=== PATIENT | male | born 1965 | race Caucasian/White ===

== ENCOUNTER 2024-05-15 16:45 | Inpatient (IN) | payer MEDICAID ==
[~2024-05-15] VITALS: Ht 172.7 cm; Wt 76.2 kg
[2024-05-15 17:47] LABS: BASOPHILS % 0.7 % (0.0-2.0); EOSINOPHILS % 2.2 % (0.0-5.0); HEMOGLOBIN. 12.1 g/dL (14.0-18.0); LYMPHOCYTES % 28.5 % (20.0-50.0); MEAN CORPUSCULAR HEMOGLOBIN 31.7 pg (28.0-32.0); MEAN CORPUSCULAR HGB CONC 33.6 g/dL (31.0-37.0); MEAN CORPUSCULAR VOLUME 94.3 fL (80.0-94.0); MEAN PLATELET VOLUME 8.9 fl (7.4-10.4); MONOCYTES % 7.2 % (2.0-8.0); NEUTROPHILS % 61.4 % (40.0-76.0); PLATELET 296 x1000/uL (130-400); RED BLOOD CELL COUNT 3.82 mill/uL (4.7-6.1); RED CELL DISTRIBUTION WIDTH 14.5 % (11.6-14.6)
[2024-05-15] MEDS: SODIUM CHLORIDE 0.9% 1,000 ML IV ONE (17:50)
[2024-05-15 17:52] LABS: CHLORIDE 108 mEq/L (98-107); POTASSIUM 4.2 mEq/L (3.5-5.1); SODIUM 138 mEq/L (136-145)
[2024-05-15 17:53] LABS: CALCIUM 9.3 mg/dL (8.7-10.4); CARBON DIOXIDE 25 mEq/L (21-32)
[2024-05-15 17:58] LABS: CREATININE 0.9 mg/dL (0.6-1.3); D-DIMER 0.43 mg/L FEU (<0.50); GLUCOSE 214 mg/dL (70-105); INR 0.9; PARTIAL THROMBOPLASTIN TIME 25.6 sec (23.4-31.0); PROTHROMBIN TIME 10.5 sec (9.6-11.0); TROPONIN I HIGH SENSITIVITY 9 ng/L (3.0-53); UREA NITROGEN BLOOD 22 mg/dL (9-23)
[2024-05-15] MEDS ORDERED: CLONIDINE 0.1MG TABLET PO PRN (20:15)
[2024-05-15] MEDS ORDERED: MAGNESIUM/ALUMINUM HYDROXIDE/SIMETHICONE 30ML UDC PO PRN (20:15)
[2024-05-15] MEDS ORDERED: LORAZEPAM 0.5MG TABLET PO PRN (20:15)
[2024-05-15] MEDS ORDERED: GUAIFENESIN 200MG/10ML SUGAR FREE UDC PO PRN (20:15)
[2024-05-15] MEDS ORDERED: ONDANSETRON HCL 4MG/2ML INJ IV PRN (20:15)
[2024-05-15] MEDS ORDERED: DEXTROSE 50% WATER 50ML SYRINGE IV PRN (20:15)
[2024-05-15] MEDS ORDERED: IPRATROPIUM/ALBUTEROL 0.5-3(2.5)MG/3ML NEB HHN PRN (20:15)
[2024-05-15] MEDS ORDERED: DOCUSATE SODIUM 100MG CAPSULE PO PRN (20:15)
[2024-05-15] MEDS ORDERED: ACETAMINOPHEN 325MG TABLET PO PRN (20:15)
[2024-05-15] MEDS ORDERED: INSULIN LISPRO 100 UNITS/ML SUBCUT SCH (21:00)
[2024-05-15 21:28] LABS: TROPONIN I HIGH SENSITIVITY 8 ng/L (3.0-53)
[2024-05-15] MEDS: BLOOD SUGAR DIAGNOSTIC STRIP TEST SCH (21:59)
[2024-05-15] MEDS: PANTOPRAZOLE 40MG DR TABLET PO NR (21:59)
[2024-05-15] MEDS: ASPIRIN 81MG TABLET PO SCH (21:59)
[2024-05-15] MEDS: ENOXAPARIN 40MG/0.4ML SYR SUBCUT SCH (22:03)
[2024-05-15] MEDS: INSULIN LISPRO 100 UNITS/ML SUBCUT SCH (22:19)
[2024-05-15] MEDS: ATORVASTATIN CALCIUM 40MG TABLET PO SCH (22:22)
[2024-05-16 01:24] LABS: CREATINE KINASE MB FRACTION 1.9 ng/mL (0.5-3.6)
[2024-05-16 06:38] LABS: CARBON DIOXIDE 25 mEq/L (21-32); CHLORIDE 108 mEq/L (98-107); POTASSIUM 3.6 mEq/L (3.5-5.1); SODIUM 140 mEq/L (136-145)
[2024-05-16 06:39] LABS: CALCIUM 9.2 mg/dL (8.7-10.4)
[2024-05-16 06:43] LABS: IRON 62 ug/dL (65-175)
[2024-05-16 06:44] LABS: CREATININE 0.7 mg/dL (0.6-1.3); GLUCOSE 154 mg/dL (70-105); TRIGLYCERIDE 96 mg/dL (0-150); UREA NITROGEN BLOOD 14 mg/dL (9-23)
[2024-05-16 06:45] LABS: LDL CHOLESTEROL 95 mg/dL (5-100)
[2024-05-16 06:46] LABS: ALBUMIN 3.9 g/dL (3.2-4.8); CHOLESTEROL 154 mg/dL (<200); CREATINE KINASE MB FRACTION 2.5 ng/mL (0.5-3.6); HDL CHOLESTEROL 30 mg/dL (>55); PHOSPHORUS 3.7 mg/dL (2.5-4.9); TOTAL IRON BINDING CAPACITY 236 ug/dl (250-425)
[2024-05-16 06:47] LABS: FOLIC ACID (FOLATE) SERUM 11.85 ng/mL (>5.38); THYROID STIMULATING HORMONE 1.09 uIU/mL (0.55-4.78); VITAMIN B12 SERUM 392 pg/mL (211-911)
[2024-05-16 07:00] LABS: BASOPHILS % 0.8 % (0.0-2.0); HEMATOCRIT. 35.5 % (42.0-52.0); LYMPHOCYTES % 43.4 % (20.0-50.0); MEAN CORPUSCULAR HEMOGLOBIN 31.9 pg (28.0-32.0); MEAN CORPUSCULAR HGB CONC 33.8 g/dL (31.0-37.0); MEAN CORPUSCULAR VOLUME 94.5 fL (80.0-94.0); MEAN PLATELET VOLUME 9.3 fl (7.4-10.4); MONOCYTES % 7.1 % (2.0-8.0); NEUTROPHILS % 44.7 % (40.0-76.0); PLATELET 271 x1000/uL (130-400); RED BLOOD CELL COUNT 3.76 mill/uL (4.7-6.1); RED CELL DISTRIBUTION WIDTH 14.2 % (11.6-14.6); WHITE BLOOD COUNT 6.8 x1000/uL (4.5-11.0)
[2024-05-16] MEDS: MAGNESIUM GLUCONATE 500MG TABLET PO SCH (11:37)
[2024-05-16 12:00] VITALS: BP 113/72; PULSE 84; RESP 19; TEMP 36.50292; O2SAT 97
[2024-05-16 16:00] VITALS: BP 111/69; PULSE 86; RESP 14; TEMP 36.16956; O2SAT 98
[2024-05-16] MEDS ORDERED: REGADENOSON 0.4 MG/5 ML IV ONE (16:15)
[2024-05-16 16:19] VITALS: BP 123/72; PULSE 84; RESP 18; TEMP 36.5292
[2024-05-16 16:25] LABS: CLARITY URINE CLEAR (CLEAR); COLOR URINE YELLOW (YELLOW); GLUCOSE URINE NEGATIVE (NEGATIVE); KETONES URINE NEGATIVE (NEGATIVE); LEUKOCYTE ESTERASE URINE NEGATIVE (NEGATIVE); NITRITE URINE NEGATIVE (NEGATIVE); OCCULT BLOOD URINE NEGATIVE (NEGATIVE); PROTEIN URINE NEGATIVE (NEGATIVE); SPECIFIC GRAVITY URINE 1.016 (1.005-1.030)
[2024-05-16 16:34] LABS: *AMPHETAMINES SCREEN URINE NEGATIVE (NEGATIVE); *BARBITURATES SCREEN URINE NEGATIVE (NEGATIVE); *BENZODIAZEPINES SCREEN URINE NEGATIVE (NEGATIVE); *COCAINE SCREEN URINE NEGATIVE (NEGATIVE)
[2024-05-16 16:35] LABS: CANNABINOID URINE SCREEN NEGATIVE (NEGATIVE); ECSTASY MDMA SCREEN URINE NEGATIVE (NEGATIVE); METHADONE URINE SCREEN NEGATIVE (NEGATIVE); OPIATES URINE SCREEN NEGATIVE (NEGATIVE); PHENCYCLIDINE URINE SCREEN NEGATIVE (NEGATIVE)
[2024-05-16] MEDS: MAGNESIUM 2 G PREMIX 50 ML IV NR (17:56)
[2024-05-16 20:00] VITALS: BP 161/94; PULSE 88; RESP 18; TEMP 36.50292; O2SAT 97
[2024-05-16 22:21] LABS: ALANINE AMINOTRANSFERASE 16 IU/L (10-49); ALBUMIN 3.8 g/dL (3.2-4.8); ASPARTATE AMINOTRANSFERASE 16 IU/L (<34); BILIRUBIN DIRECT 0.2 mg/dL (<=3.0); BILIRUBIN TOTAL 0.7 mg/dL (0.1-1.0)
[2024-05-17] VITALS (7 sets, daily range): BP systolic 99–154; BP diastolic 53–99; PULSE 71–94; RESP 18–20; TEMP 35.66952–36.44736; O2SAT 95–99
[2024-05-17] MEDS ORDERED: REGADENOSON 0.4 MG/5 ML IV ONE (09:21)
[2024-05-17] MEDS ORDERED: FAMO20TA8 PO (11:55)
[2024-05-17] MEDS ORDERED: SENN-362 PO (11:55)
[2024-05-17] MEDS ORDERED: ATOR-2 PO (11:55)
[2024-05-17] MEDS ORDERED: CLOP75TA33 PO (11:55)
[2024-05-17] MEDS ORDERED: GABA-532 PO (11:55)
[2024-05-17] MEDS ORDERED: ATOR20TA65 PO (11:55)
[2024-05-17] MEDS ORDERED: GABA-290 PO (11:55)
[2024-05-17] MEDS ORDERED: METF-414 PO (11:55)
[2024-05-17] MEDS ORDERED: METO25TA6 PO (11:55)
[2024-05-17] MEDS ORDERED: [UNRECOGNIZED DRUG - CODE] TP (11:55)
[2024-05-17] MEDS ORDERED: LIP40 PO (13:26)
[2024-05-17] MEDS ORDERED: ASPI-1160 PO (13:26)
[2024-05-18] VITALS: BP 109/71; PULSE 88; RESP 19; TEMP 36.6696; O2SAT 97
[2024-05-18 04:00] VITALS: BP 109/71; PULSE 88; RESP 19; TEMP 36.6696; O2SAT 97
[2024-05-18 08:00] VITALS: BP 85/64; PULSE 92; RESP 16; TEMP 36.50292; O2SAT 94
[2024-05-18] MEDS: ACETAMINOPHEN 325MG TABLET PO PRN (09:17)
[2024-05-18 12:00] VITALS: BP 100/65; PULSE 90; RESP 18; TEMP 36.6696; TEMP 36.66960; O2SAT 95
== END 2024-05-18 17:00 | disposition home or self-care (01) | DRG 198 ==
LOC: ER 16:45 → EDBEDREQTM 19:05 → EDBEDREQ 19:05 → 5WST 22:42 → 7EST 05-16 12:17
PROVIDERS: ADMIT Hospitalist; ATTEND Hospitalist
DX: I25.110 Atherosclerotic heart disease of native coronary artery with unstable angina pectoris (principal); E11.40 Type 2 diabetes mellitus with diabetic neuropathy, unspecified; I11.9 Hypertensive heart disease without heart failure; D53.9 Nutritional anemia, unspecified; E78.00 Pure hypercholesterolemia, unspecified; E83.42 Hypomagnesemia; Z20.822 Contact with and (suspected) exposure to COVID-19; F17.210 Nicotine dependence, cigarettes, uncomplicated; Z79.4 Long term (current) use of insulin; Z89.512 Acquired absence of left leg below knee; Z91.148 Patient's other noncompliance with medication regimen for other reason; Z99.3 Dependence on wheelchair
CPT/HCPCS: 36415; 71045; 73630; 78452; 80048; 80061; 80076; 80305; 81003; 82040; 82550; 82553; 82607; 82746; 82962; 83036; 83540; 83550; 83605; 83735; 83880; 84100; 84443; 84484; 85025; 85379; 87426; 93005; 93017; 93306; 93970; 97162; 97166; 99285; A9500; J1650; J1815; J2785; J3475; J7030